=== PATIENT | female | born 1960 | race Caucasian/White ===

== ENCOUNTER 2024-03-05 03:07 | Emergency (ER) | payer OTHER ==
[~2024-03-05] VITALS: Ht 182.9 cm; Wt 96.2 kg
[~2024-03-05 03:07] MED LIST: BENZ100A PO; HYDACE5 PO; IBUP600 PO; IBUP800 PO
[2024-03-05] MEDS ORDERED: Lidocaine 4% 1 Patch TOP ONE (03:45)
[2024-03-05 04:18] VITALS: BP 154/92
== END 2024-03-05 04:19 | disposition home or self-care (01) ==
LOC: ER 03:07
DX: S39.012A Strain of muscle, fascia and tendon of lower back, initial encounter (principal); J06.9 Acute upper respiratory infection, unspecified; X58.XXXA Exposure to other specified factors, initial encounter; Z88.5 Allergy status to narcotic agent; F17.200 Nicotine dependence, unspecified, uncomplicated
CPT/HCPCS: 99283; A9270